=== PATIENT | male | born 1935 | race Caucasian/White ===

== ENCOUNTER 2017-05-25 10:31 | Emergency (ER) | payer MEDICARE ==
[~2017-05-25] VITALS: Ht 177.8 cm; Wt 104.3 kg
[~2017-05-25 10:31] MED LIST: ALLO100 PO; AMLO5 PO; CALC.25 PO; CYCL10 PO; FISH1000 PO; FURO20 PO; HYDCHL12.5 PO; LOSA25 PO; OXYACE5T PO; SIMV20 PO; XARELTO20 MG PO; ZOLP5 PO
[2017-05-25 11:09] LABS: BASOPHILS ABSOLUTE AUTO 0.09 K/mm3 (0.00-0.23); BASOPHILS PERCENT AUTO 1 % (0-2); EOSINOPHILS ABSOLUTE AUTO 0.32 K/mm3 (0.00-0.68); EOSINOPHILS PERCENT AUTO 3 % (0-6); Hematocrit 51.9 % (37.0-53.0); Hemoglobin 17.4 g/dL (13.5-17.5); IMMATURE GRAN PERCENT AUTO 1 % (0-1); LYMPHOCYTES ABSOLUTE AUTO 1.55 K/mm3 (0.84-5.20); LYMPHOCYTES PERCENT AUTO 14 % (21-46); MONOCYTES ABSOLUTE AUTO 1.19 K/mm3 (0.16-1.47); MONOCYTES PERCENT AUTO 11 % (4-13); Mean Corpuscular HGB 33.1 pg (26.0-34.0); Mean Corpuscular HGB Conc 33.5 g/dL (31.5-36.5); Mean Corpuscular Volume 99 fL (80-100); Mean Platelet Volume 10.7 fL (9.1-12.4); NEUTROPHILS ABSOLUTE AUTO 8.01 K/mm3 (1.96-9.15); NEUTROPHILS PERCENT AUTO 71 % (41-73); Platelet Count 338 K/mm3 (150-400); RDW Coefficient Variation 14.6 % (11.7-14.2); RDW Standard Deviation 53.5 fL (35.1-46.3); Red Blood Cell Count 5.25 M/mm3 (4.30-5.90); White Blood Cell Count 11.26 K/mm3 (4.00-11.30)
[2017-05-25 11:19] LABS: Albumin, Blood 3.5 g/dL (3.4-5.0); Albumin/Globulin Ratio 0.8 (0.8-1.8); Bilirubin, Total 0.7 mg/dL (0.1-1.0); Bun/Creatinine Ratio 17.3 (12.0-20.0); Calcium, Blood 9.5 mg/dL (8.5-10.1); Creatinine, Blood 2.25 mg/dL (0.60-1.20); Globulin, Blood 4.5 g/dL (2.2-4.0)
[2017-05-25 12:15] LABS: Source, Urine Voided
[2017-05-25 12:37] LABS: Bilirubin, Urine Neg (Neg); Blood, Urine Neg (Neg); Glucose Qualitative, Urine Neg (Neg); Ketones, Urine Neg (Neg); Leukocyte Esterase, Urine 1+ (Neg); Nitrite, Urine Pos (Neg); Protein, Urine 1+ (Neg); Specific Gravity, Urine 1.015 (1.003-1.022); Urobilinogen, Urine NORM (Normal)
[2017-05-25 13:02] LABS: Appearance, Urine Clear (Clear); Color, Urine Pale Yellow (P-Yellow)
[2017-05-25 13:06] LABS: Red Blood Cells, Urine 0-2 /hpf (0-2)
[2017-05-25 13:07] LABS: Bacteria Many /hpf; Squamous Epithelial Cells Rare /hpf (Few)
[2017-05-25 13:08] LABS: Hyaline Casts 0-2 /lpf (0-2)
[2017-05-25] MEDS ORDERED: CEPH500 PO (13:24)
== END 2017-05-25 13:45 | disposition home or self-care (01) ==
LOC: ER 10:31
PROVIDERS: Emergency Medicine
DX: N39.0 Urinary tract infection, site not specified (principal); I10 Essential (primary) hypertension; Z79.899 Other long term (current) drug therapy; Z87.891 Personal history of nicotine dependence
CPT/HCPCS: 36415; 80053; 81001; 85025; 87077; 87086; 87186; 93005; 93010; 99283

== ENCOUNTER → 2017-06-01 | Outpatient (CLI) | payer MEDICARE ==
[~2017-06-01] MED LIST changes: +CEPH500 PO
[2017-06-01 10:17] LABS: Source, Urine Voided
[2017-06-01 11:30] LABS: Bilirubin, Urine Neg (Neg); Blood, Urine Neg (Neg); Glucose Qualitative, Urine Neg (Neg); Ketones, Urine Neg (Neg); Leukocyte Esterase, Urine Neg (Neg); Nitrite, Urine Neg (Neg); Protein, Urine 2+ (Neg); Specific Gravity, Urine 1.015 (1.003-1.022); Urobilinogen, Urine NORM (Normal)
[2017-06-01 11:53] LABS: Appearance, Urine Clear (Clear); Color, Urine Yellow (P-Yellow)
[2017-06-01 11:56] LABS: Bacteria Rare /hpf; Red Blood Cells, Urine Not Seen /hpf (0-2); Squamous Epithelial Cells Few /hpf (Few); White Blood Cells, Urine Not Seen /hpf (0-5)
== END | disposition home or self-care (01) ==
LOC: OLS 10:15 → LAB SHORT 10:15
PROVIDERS: Internal Medicine
DX: N39.0 Urinary tract infection, site not specified (principal)
CPT/HCPCS: 81001

== ENCOUNTER 2017-09-20 09:25 | Emergency (ER) | payer MEDICARE ==
[~2017-09-20] VITALS: Ht 182.9 cm; Wt 88.5 kg
[2017-09-20 09:45] LABS: BASOPHILS ABSOLUTE AUTO 0.07 K/mm3 (0.00-0.23); BASOPHILS PERCENT AUTO 1 % (0-2); EOSINOPHILS ABSOLUTE AUTO 0.49 K/mm3 (0.00-0.68); EOSINOPHILS PERCENT AUTO 4 % (0-6); Hematocrit 51.2 % (37.0-53.0); Hemoglobin 17.2 g/dL (13.5-17.5); IMMATURE GRAN ABSOLUTE AUTO 0.08 K/mm3 (0.00-0.10); IMMATURE GRAN PERCENT AUTO 1 % (0-1); LYMPHOCYTES ABSOLUTE AUTO 1.85 K/mm3 (0.84-5.20); LYMPHOCYTES PERCENT AUTO 16 % (21-46); MONOCYTES ABSOLUTE AUTO 1.06 K/mm3 (0.16-1.47); MONOCYTES PERCENT AUTO 9 % (4-13); Mean Corpuscular HGB 32.7 pg (26.0-34.0); Mean Corpuscular HGB Conc 33.6 g/dL (31.5-36.5); Mean Corpuscular Volume 97 fL (80-100); Mean Platelet Volume 10.8 fL (9.1-12.4); NEUTROPHILS ABSOLUTE AUTO 8.27 K/mm3 (1.96-9.15); NEUTROPHILS PERCENT AUTO 70 % (41-73); Platelet Count 264 K/mm3 (150-400); RDW Coefficient Variation 15.7 % (11.7-14.2); RDW Standard Deviation 55.4 fL (35.1-46.3); Red Blood Cell Count 5.26 M/mm3 (4.30-5.90); White Blood Cell Count 11.82 K/mm3 (4.00-11.30)
[2017-09-20 10:07] LABS: Troponin I <0.015 ng/mL (0.000-0.040)
[2017-09-20 10:18] LABS: Alanine Aminotransfer (ALT/SGP 43 U/L (12-78); Albumin, Blood 2.9 g/dL (3.4-5.0); Albumin/Globulin Ratio 0.7 (0.8-1.8); Alk Phos 99 U/L (50-136); Anion Gap 10 mmol/L (6-16); Aspartate Aminotrans (AST/SGOT 27 U/L (12-37); Bilirubin, Total 0.6 mg/dL (0.1-1.0); Blood Urea Nitrogen 30 mg/dL (8-24); Bun/Creatinine Ratio 17.2 (12.0-20.0); CO2, Blood 19 mmol/L (21-32); Chloride, Blood 111 mmol/L (98-108); Creatinine, Blood 1.74 mg/dL (0.60-1.20); Globulin, Blood 4.2 g/dL (2.2-4.0); Glomerular Filtration Rate 40 (60-); Glucose, Blood 126 mg/dL (70-99); Potassium, Blood 3.8 mmol/L (3.5-5.5); Sodium, Blood 140 mmol/L (136-145); Total Protein, Blood 7.1 g/dL (6.4-8.2)
== END 2017-09-20 13:42 | disposition home or self-care (01) ==
LOC: ER 09:25
PROVIDERS: Emergency Medicine
DX: R55 Syncope and collapse (principal); I10 Essential (primary) hypertension; Z79.899 Other long term (current) drug therapy; Z79.891 Long term (current) use of opiate analgesic; Z79.2 Long term (current) use of antibiotics
CPT/HCPCS: 36415; 71046; 80053; 83880; 84484; 85025; 93005; 93010; 99284-25

== ENCOUNTER 2017-11-03 12:16 | Inpatient (IN) | payer MEDICARE ==
[~2017-11-03] VITALS: Ht 175.3 cm; Wt 93.7 kg
[~2017-11-03 12:16] MED LIST changes: +SIMV10 PO; -SIMV20 PO
[2017-11-03 12:49] LABS: BASOPHILS ABSOLUTE AUTO 0.06 K/mm3 (0.00-0.23); BASOPHILS PERCENT AUTO 0 % (0-2); EOSINOPHILS ABSOLUTE AUTO 0.09 K/mm3 (0.00-0.68); EOSINOPHILS PERCENT AUTO 0 % (0-6); Hematocrit 52.7 % (37.0-53.0); Hemoglobin 17.7 g/dL (13.5-17.5); IMMATURE GRAN ABSOLUTE AUTO 0.16 K/mm3 (0.00-0.10); IMMATURE GRAN PERCENT AUTO 1 % (0-1); LYMPHOCYTES ABSOLUTE AUTO 1.87 K/mm3 (0.84-5.20); LYMPHOCYTES PERCENT AUTO 9 % (21-46); MONOCYTES ABSOLUTE AUTO 1.73 K/mm3 (0.16-1.47); MONOCYTES PERCENT AUTO 8 % (4-13); Mean Corpuscular HGB 32.2 pg (26.0-34.0); Mean Corpuscular HGB Conc 33.6 g/dL (31.5-36.5); Mean Corpuscular Volume 96 fL (80-100); NEUTROPHILS ABSOLUTE AUTO 17.79 K/mm3 (1.96-9.15); NEUTROPHILS PERCENT AUTO 82 % (41-73); Platelet Count 321 K/mm3 (150-400); RDW Coefficient Variation 16.3 % (11.7-14.2); RDW Standard Deviation 56.3 fL (35.1-46.3)
[2017-11-03] MEDS ORDERED: DONE10 PO (13:01)
[2017-11-03] MEDS ORDERED: SODBIC650 PO (13:01)
[2017-11-03] MEDS ORDERED: METO50ER PO (13:02)
[2017-11-03] MEDS ORDERED: MULTI VITAMIN1 EACH PO (13:02)
[2017-11-03] MEDS ORDERED: CALC.25 PO (13:02)
[2017-11-03 13:04] LABS: Albumin, Blood 3.2 g/dL (3.4-5.0); Albumin/Globulin Ratio 0.7 (0.8-1.8); Bilirubin, Total 1.3 mg/dL (0.1-1.0); Bun/Creatinine Ratio 13.3 (12.0-20.0); Calcium, Blood 9.4 mg/dL (8.5-10.1); Creatinine, Blood 1.96 mg/dL (0.60-1.20); Globulin, Blood 4.5 g/dL (2.2-4.0); Potassium, Blood 3.9 mmol/L (3.5-5.5); Total Protein, Blood 7.7 g/dL (6.4-8.2)
[2017-11-03 16:23] LABS: Source, Urine Clean Catch
[2017-11-03 16:27] LABS: Appearance, Urine Clear (Clear); Bilirubin, Urine Neg (Neg); Blood, Urine 1+ (Neg); Color, Urine Yellow (P-Yellow); Glucose Qualitative, Urine Neg (Neg); Ketones, Urine 2+ (Neg); Leukocyte Esterase, Urine 1+ (Neg); Nitrite, Urine Neg (Neg); Protein, Urine 2+ (Neg); Urobilinogen, Urine NORM (Normal)
[2017-11-03 16:47] LABS: Bacteria Not Seen /hpf; Mucus Light (0-Heavy); Squamous Epithelial Cells Not Seen /hpf (Few)
[2017-11-04 05:44] LABS: BASOPHILS ABSOLUTE AUTO 0.08 K/mm3 (0.00-0.23); BASOPHILS PERCENT AUTO 1 % (0-2); EOSINOPHILS ABSOLUTE AUTO 0.16 K/mm3 (0.00-0.68); EOSINOPHILS PERCENT AUTO 1 % (0-6); Hematocrit 44.8 % (37.0-53.0); Hemoglobin 14.4 g/dL (13.5-17.5); IMMATURE GRAN ABSOLUTE AUTO 0.08 K/mm3 (0.00-0.10); IMMATURE GRAN PERCENT AUTO 1 % (0-1); LYMPHOCYTES ABSOLUTE AUTO 1.35 K/mm3 (0.84-5.20); LYMPHOCYTES PERCENT AUTO 9 % (21-46); MONOCYTES ABSOLUTE AUTO 1.45 K/mm3 (0.16-1.47); MONOCYTES PERCENT AUTO 9 % (4-13); Mean Corpuscular HGB 32.1 pg (26.0-34.0); Mean Corpuscular HGB Conc 32.1 g/dL (31.5-36.5); Mean Platelet Volume 10.7 fL (9.1-12.4); NEUTROPHILS ABSOLUTE AUTO 12.73 K/mm3 (1.96-9.15); NEUTROPHILS PERCENT AUTO 80 % (41-73); Platelet Count 228 K/mm3 (150-400); RDW Coefficient Variation 16.2 % (11.7-14.2); RDW Standard Deviation 59.7 fL (35.1-46.3); Red Blood Cell Count 4.49 M/mm3 (4.30-5.90); White Blood Cell Count 15.85 K/mm3 (4.00-11.30)
[2017-11-04 05:50] LABS: Mean Corpuscular Volume 100 fL (80-100)
[2017-11-04 05:59] LABS: Albumin, Blood 2.2 g/dL (3.4-5.0); Albumin/Globulin Ratio 0.6 (0.8-1.8); Bilirubin, Direct 0.2 mg/dL (0.0-0.3); Bilirubin, Indirect 0.8 mg/dL (0.1-0.7); Bun/Creatinine Ratio 13.9 (12.0-20.0); Calcium, Blood 7.9 mg/dL (8.5-10.1); Creatinine, Blood 1.73 mg/dL (0.60-1.20); Globulin, Blood 3.7 g/dL (2.2-4.0); Magnesium, Blood 1.8 mg/dL (1.6-2.4); Phosphorus, Blood 1.9 mg/dL (2.5-4.9); Total Protein, Blood 5.9 g/dL (6.4-8.2)
[2017-11-05 08:34] LABS: BASOPHILS ABSOLUTE AUTO 0.05 K/mm3 (0.00-0.23); BASOPHILS PERCENT AUTO 0 % (0-2); EOSINOPHILS ABSOLUTE AUTO 0.39 K/mm3 (0.00-0.68); EOSINOPHILS PERCENT AUTO 3 % (0-6); Hemoglobin 14.3 g/dL (13.5-17.5); IMMATURE GRAN ABSOLUTE AUTO 0.09 K/mm3 (0.00-0.10); IMMATURE GRAN PERCENT AUTO 1 % (0-1); LYMPHOCYTES ABSOLUTE AUTO 1.25 K/mm3 (0.84-5.20); LYMPHOCYTES PERCENT AUTO 11 % (21-46); MONOCYTES ABSOLUTE AUTO 1.27 K/mm3 (0.16-1.47); MONOCYTES PERCENT AUTO 11 % (4-13); Mean Corpuscular HGB 32.1 pg (26.0-34.0); Mean Corpuscular HGB Conc 32.5 g/dL (31.5-36.5); Mean Corpuscular Volume 99 fL (80-100); Mean Platelet Volume 11.3 fL (9.1-12.4); NEUTROPHILS ABSOLUTE AUTO 8.72 K/mm3 (1.96-9.15); NEUTROPHILS PERCENT AUTO 74 % (41-73); Platelet Count 254 K/mm3 (150-400); RDW Coefficient Variation 16.2 % (11.7-14.2); RDW Standard Deviation 59.4 fL (35.1-46.3); Red Blood Cell Count 4.45 M/mm3 (4.30-5.90); White Blood Cell Count 11.77 K/mm3 (4.00-11.30)
[2017-11-05 08:45] LABS: Bun/Creatinine Ratio 13.9 (12.0-20.0); Creatinine, Blood 1.58 mg/dL (0.60-1.20); Potassium, Blood 3.9 mmol/L (3.5-5.5)
[2017-11-05] MEDS ORDERED: ACET325 PO (12:24)
[2017-11-05] MEDS ORDERED: CIPR500 PO (12:25)
[2017-11-05] MEDS ORDERED: HYDR1TAB94 PO (12:25)
[2017-11-05] MEDS ORDERED: PROBIOTIC1 EAC1 PO (12:26)
[2017-11-05] MEDS ORDERED: (None)15 GM TOP (12:26)
[2017-11-05] MEDS ORDERED: ONDA4ODT MM (12:27)
[2017-11-05] MEDS ORDERED: METR500 PO (12:27)
[2017-11-05] MEDS ORDERED: NYSTATIN TOP (12:28)
[2017-11-05] MEDS ORDERED: POTASSIUM PHOSPH1 GM MC (12:28)
[2017-11-06 04:11] LABS: BASOPHILS ABSOLUTE AUTO 0.06 K/mm3 (0.00-0.23); BASOPHILS PERCENT AUTO 1 % (0-2); EOSINOPHILS ABSOLUTE AUTO 0.55 K/mm3 (0.00-0.68); EOSINOPHILS PERCENT AUTO 5 % (0-6); Hematocrit 44.6 % (37.0-53.0); Hemoglobin 15.1 g/dL (13.5-17.5); IMMATURE GRAN ABSOLUTE AUTO 0.15 K/mm3 (0.00-0.10); IMMATURE GRAN PERCENT AUTO 1 % (0-1); LYMPHOCYTES ABSOLUTE AUTO 1.72 K/mm3 (0.84-5.20); LYMPHOCYTES PERCENT AUTO 15 % (21-46); MONOCYTES ABSOLUTE AUTO 1.21 K/mm3 (0.16-1.47); MONOCYTES PERCENT AUTO 10 % (4-13); Mean Corpuscular HGB 32.1 pg (26.0-34.0); Mean Corpuscular HGB Conc 33.9 g/dL (31.5-36.5); Mean Platelet Volume 11.1 fL (9.1-12.4); NEUTROPHILS PERCENT AUTO 69 % (41-73); Platelet Count 296 K/mm3 (150-400); RDW Coefficient Variation 15.9 % (11.7-14.2); RDW Standard Deviation 55.2 fL (35.1-46.3); Red Blood Cell Count 4.71 M/mm3 (4.30-5.90); White Blood Cell Count 11.79 K/mm3 (4.00-11.30)
[2017-11-06 04:12] LABS: Mean Corpuscular Volume 95 fL (80-100)
[2017-11-06 04:27] LABS: Bun/Creatinine Ratio 9.7 (12.0-20.0); Calcium, Blood 8.1 mg/dL (8.5-10.1); Creatinine, Blood 1.45 mg/dL (0.60-1.20)
[2017-11-06 19:23] LABS: Adenovirus F 40/41 Not Detected (NOT DETECT); Astrovirus Not Detected (NOT DETECT); Campylobacter Sp Not Detected (NOT DETECT); Cryptosporidium Not Detected (NOT DETECT); Cyclospora Cayetanensis Not Detected (NOT DETECT); E. Coli O157 Not Detected (NOT DETECT); Entamoeba Histolytica Not Detected (NOT DETECT); Enteroaggregative E. coli-EAEC Not Detected (NOT DETECT); Enteropathogenic E. coli-EPEC Not Detected (NOT DETECT); Enterotoxigenic E. coli-ETEC Not Detected (NOT DETECT); Giardia Lamblia Not Detected (NOT DETECT); Norovirus GI/GII Not Detected (NOT DETECT); Plesiomonas Shigelloides Not Detected (NOT DETECT); Rotavirus A Not Detected (NOT DETECT); Salmonella Sp Not Detected (NOT DETECT); Sapovirus Not Detected (NOT DETECT); Shiga Toxin-prod E. coli-STEC Not Detected (NOT DETECT); Shigella/Enteroin E. coli-EIEC Not Detected (NOT DETECT); Vibrio Cholerae Not Detected (NOT DETECT); Vibrio Sp Not Detected (NOT DETECT); Yersinia Enterocolitica Not Detected (NOT DETECT)
[2017-11-07 05:49] LABS: BASOPHILS ABSOLUTE AUTO 0.08 K/mm3 (0.00-0.23); BASOPHILS PERCENT AUTO 1 % (0-2); EOSINOPHILS ABSOLUTE AUTO 0.53 K/mm3 (0.00-0.68); EOSINOPHILS PERCENT AUTO 6 % (0-6); Hematocrit 46.1 % (37.0-53.0); Hemoglobin 15.5 g/dL (13.5-17.5); IMMATURE GRAN ABSOLUTE AUTO 0.15 K/mm3 (0.00-0.10); IMMATURE GRAN PERCENT AUTO 2 % (0-1); LYMPHOCYTES ABSOLUTE AUTO 1.39 K/mm3 (0.84-5.20); LYMPHOCYTES PERCENT AUTO 15 % (21-46); MONOCYTES ABSOLUTE AUTO 0.96 K/mm3 (0.16-1.47); MONOCYTES PERCENT AUTO 10 % (4-13); Mean Corpuscular HGB 32.4 pg (26.0-34.0); Mean Corpuscular HGB Conc 33.6 g/dL (31.5-36.5); Mean Corpuscular Volume 96 fL (80-100); Mean Platelet Volume 10.6 fL (9.1-12.4); NEUTROPHILS PERCENT AUTO 67 % (41-73); Platelet Count 314 K/mm3 (150-400); RDW Coefficient Variation 15.9 % (11.7-14.2); RDW Standard Deviation 56.9 fL (35.1-46.3); Red Blood Cell Count 4.79 M/mm3 (4.30-5.90); White Blood Cell Count 9.41 K/mm3 (4.00-11.30)
[2017-11-07 06:09] LABS: Albumin, Blood 2.5 g/dL (3.4-5.0); Anion Gap 8 mmol/L (6-16); Blood Urea Nitrogen 11 mg/dL (8-24); Bun/Creatinine Ratio 7.6 (12.0-20.0); CO2, Blood 23 mmol/L (21-32); Calcium, Blood 8.4 mg/dL (8.5-10.1); Chloride, Blood 110 mmol/L (98-108); Creatinine, Blood 1.44 mg/dL (0.60-1.20); Glomerular Filtration Rate 50 (60-); Glucose, Blood 89 mg/dL (70-99); Phosphorus, Blood 2.4 mg/dL (2.5-4.9); Potassium, Blood 4.1 mmol/L (3.5-5.5); Sodium, Blood 141 mmol/L (136-145)
[2017-11-08 04:19] LABS: BASOPHILS ABSOLUTE AUTO 0.08 K/mm3 (0.00-0.23); BASOPHILS PERCENT AUTO 1 % (0-2); EOSINOPHILS ABSOLUTE AUTO 0.57 K/mm3 (0.00-0.68); EOSINOPHILS PERCENT AUTO 6 % (0-6); Hematocrit 47.8 % (37.0-53.0); Hemoglobin 15.9 g/dL (13.5-17.5); IMMATURE GRAN PERCENT AUTO 2 % (0-1); LYMPHOCYTES ABSOLUTE AUTO 1.48 K/mm3 (0.84-5.20); LYMPHOCYTES PERCENT AUTO 15 % (21-46); MONOCYTES PERCENT AUTO 10 % (4-13); Mean Corpuscular HGB 31.9 pg (26.0-34.0); Mean Corpuscular HGB Conc 33.3 g/dL (31.5-36.5); Mean Corpuscular Volume 96 fL (80-100); Mean Platelet Volume 10.3 fL (9.1-12.4); NEUTROPHILS ABSOLUTE AUTO 6.64 K/mm3 (1.96-9.15); NEUTROPHILS PERCENT AUTO 67 % (41-73); Platelet Count 324 K/mm3 (150-400); RDW Coefficient Variation 15.9 % (11.7-14.2); RDW Standard Deviation 56.2 fL (35.1-46.3); Red Blood Cell Count 4.99 M/mm3 (4.30-5.90); White Blood Cell Count 9.97 K/mm3 (4.00-11.30)
[2017-11-08 04:43] LABS: Albumin, Blood 2.6 g/dL (3.4-5.0); Anion Gap 8 mmol/L (6-16); Blood Urea Nitrogen 14 mg/dL (8-24); Bun/Creatinine Ratio 9.2 (12.0-20.0); CO2, Blood 23 mmol/L (21-32); Calcium, Blood 8.6 mg/dL (8.5-10.1); Chloride, Blood 109 mmol/L (98-108); Creatinine, Blood 1.52 mg/dL (0.60-1.20); Glomerular Filtration Rate 47 (60-); Glucose, Blood 89 mg/dL (70-99); Phosphorus, Blood 2.4 mg/dL (2.5-4.9); Potassium, Blood 4.1 mmol/L (3.5-5.5); Sodium, Blood 140 mmol/L (136-145)
== END 2017-11-08 11:00 | DRG 392 ==
LOC: ER 12:16 → SURS 17:50
PROVIDERS: Emergency Medicine; Family Medicine; Physician Assistant
DX: A09 Infectious gastroenteritis and colitis, unspecified (principal); N17.9 Acute kidney failure, unspecified; R55 Syncope and collapse; E86.0 Dehydration; N18.3 Chronic kidney disease, stage 3 (moderate); G30.9 Alzheimer's disease, unspecified; F02.80 Dementia in other diseases classified elsewhere, unspecified severity, without behavioral disturbance, psychotic disturbance, mood disturbance, and anxiety; M10.9 Gout, unspecified; I12.9 Hypertensive chronic kidney disease with stage 1 through stage 4 chronic kidney disease, or unspecified chronic kidney disease; E78.5 Hyperlipidemia, unspecified; M35.3 Polymyalgia rheumatica; Z66 Do not resuscitate; Z87.891 Personal history of nicotine dependence; Z79.899 Other long term (current) drug therapy
CPT/HCPCS: 36415; 51702; 71046; 74018; 74176; 80048; 80053; 80069; 80076; 81001; 82150; 82947; 83605; 83735; 84100; 84484; 85025; 87015; 87040; 87045; 87046; 87086; 87205; 87507; 87899; 93005; 93010; 96360; 96361; 97116; 97161; 97165; 97535; 99285-25; G8978; G8979; G8987; G8988; J0744; J1650; J7030

== ENCOUNTER 2018-05-11 21:23 | Emergency (ER) | payer MEDICARE ==
[~2018-05-11] VITALS: Ht 175.3 cm; Wt 97.5 kg
[~2018-05-11 21:23] MED LIST changes: +(None)15 GM TOP; +ACET325 PO; +BISA10S PR; +CIPR500 PO; +DOCU100 PO; +DONE10 PO; +ELIQUIS2.5 MG PO; +ELIQUIS5 M1; +FURO100EL; +FURO100EL PO; +HYDR1TAB94 PO; +METO50ER PO; +METR500 PO; +MULTI VITAMIN1 EACH PO; +NYSTATIN TOP; +NYSTRITC TOP; +ONDA4ODT MM; +ONDA4ODT PO; +POTASSIUM PHOSPH1 GM MC; +PROBIOTIC1 EAC1 PO; +SACC250C PO; +SODBIC650 PO
[2018-05-11 22:03] LABS: BASOPHILS ABSOLUTE AUTO 0.09 K/mm3 (0.00-0.23); BASOPHILS PERCENT AUTO 1 % (0-2); EOSINOPHILS ABSOLUTE AUTO 0.33 K/mm3 (0.00-0.68); EOSINOPHILS PERCENT AUTO 3 % (0-6); Hematocrit 48.7 % (37.0-53.0); Hemoglobin 16.3 g/dL (13.5-17.5); IMMATURE GRAN ABSOLUTE AUTO 0.17 K/mm3 (0.00-0.10); IMMATURE GRAN PERCENT AUTO 2 % (0-1); LYMPHOCYTES ABSOLUTE AUTO 1.46 K/mm3 (0.84-5.20); LYMPHOCYTES PERCENT AUTO 13 % (21-46); MONOCYTES ABSOLUTE AUTO 1.33 K/mm3 (0.16-1.47); MONOCYTES PERCENT AUTO 12 % (4-13); Mean Corpuscular HGB 34.5 pg (26.0-34.0); Mean Corpuscular HGB Conc 33.5 g/dL (31.5-36.5); Mean Corpuscular Volume 103 fL (80-100); Mean Platelet Volume 11.2 fL (9.1-12.4); NEUTROPHILS ABSOLUTE AUTO 8.16 K/mm3 (1.96-9.15); NEUTROPHILS PERCENT AUTO 71 % (41-73); Platelet Count 243 K/mm3 (150-400); RDW Coefficient Variation 15.9 % (11.7-14.2); RDW Standard Deviation 61.5 fL (35.1-46.3); Red Blood Cell Count 4.72 M/mm3 (4.30-5.90); White Blood Cell Count 11.54 K/mm3 (4.00-11.30)
[2018-05-11 22:26] LABS: Albumin, Blood 3.5 g/dL (3.4-5.0); Albumin/Globulin Ratio 0.8 (0.8-1.8); Bilirubin, Total 0.5 mg/dL (0.1-1.0); Bun/Creatinine Ratio 17.9 (12.0-20.0); Calcium, Blood 9.5 mg/dL (8.5-10.1); Creatinine, Blood 1.9 mg/dL (0.60-1.20); Globulin, Blood 4.3 g/dL (2.2-4.0); Potassium, Blood 4.4 mmol/L (3.5-5.5); Total Protein, Blood 7.8 g/dL (6.4-8.2)
[2018-05-11 23:14] LABS: Source, Urine Clean Catch
[2018-05-11 23:18] LABS: Bilirubin, Urine Neg (Neg); Blood, Urine Neg (Neg); Glucose Qualitative, Urine Neg (Neg); Ketones, Urine Neg (Neg); Leukocyte Esterase, Urine Neg (Neg); Nitrite, Urine Neg (Neg); Protein, Urine 2+ (Neg); Urobilinogen, Urine NORM (Normal)
[2018-05-11 23:21] LABS: Appearance, Urine Clear (Clear); Color, Urine Yellow (P-Yellow)
[2018-05-11 23:33] LABS: Bacteria Not Seen /hpf; Red Blood Cells, Urine Not Seen /hpf (0-2); Squamous Epithelial Cells Rare /hpf (Few); White Blood Cells, Urine Rare /hpf (0-5)
[2018-05-12 00:16] LABS: Influenza A Negative (NEGATIVE); Influenza B Negative (NEGATIVE)
== END 2018-05-12 01:33 | disposition home or self-care (01) ==
LOC: ER 21:23
PROVIDERS: Emergency Medicine
DX: S09.90XA Unspecified injury of head, initial encounter (principal); E86.0 Dehydration; I10 Essential (primary) hypertension; M10.9 Gout, unspecified; G62.9 Polyneuropathy, unspecified; M35.3 Polymyalgia rheumatica; Z87.891 Personal history of nicotine dependence; Z79.899 Other long term (current) drug therapy; W19.XXXA Unspecified fall, initial encounter
CPT/HCPCS: 36415; 70450; 71046; 72125; 73620; 80053; 81001; 85025; 85651; 86141; 87804; 93005; 93010; 96360; 96361; 99284-25; J7030

== ENCOUNTER 2018-05-20 14:14 | Emergency (ER) | payer MEDICARE ==
[~2018-05-20] VITALS: Ht 177.8 cm; Wt 84.4 kg
[2018-05-20 15:06] LABS: BASOPHILS ABSOLUTE AUTO 0.07 K/mm3 (0.00-0.23); BASOPHILS PERCENT AUTO 1 % (0-2); EOSINOPHILS ABSOLUTE AUTO 0.41 K/mm3 (0.00-0.68); EOSINOPHILS PERCENT AUTO 4 % (0-6); Hematocrit 50.1 % (37.0-53.0); Hemoglobin 16.8 g/dL (13.5-17.5); IMMATURE GRAN ABSOLUTE AUTO 0.17 K/mm3 (0.00-0.10); IMMATURE GRAN PERCENT AUTO 2 % (0-1); LYMPHOCYTES ABSOLUTE AUTO 2.09 K/mm3 (0.84-5.20); LYMPHOCYTES PERCENT AUTO 18 % (21-46); MONOCYTES ABSOLUTE AUTO 0.83 K/mm3 (0.16-1.47); MONOCYTES PERCENT AUTO 7 % (4-13); Mean Corpuscular HGB 34.1 pg (26.0-34.0); Mean Corpuscular HGB Conc 33.5 g/dL (31.5-36.5); Mean Corpuscular Volume 102 fL (80-100); NEUTROPHILS ABSOLUTE AUTO 7.92 K/mm3 (1.96-9.15); NEUTROPHILS PERCENT AUTO 69 % (41-73); Platelet Count 288 K/mm3 (150-400); RDW Coefficient Variation 15.8 % (11.7-14.2); RDW Standard Deviation 59.1 fL (35.1-46.3); Red Blood Cell Count 4.93 M/mm3 (4.30-5.90); White Blood Cell Count 11.49 K/mm3 (4.00-11.30)
[2018-05-20 15:19] LABS: Albumin, Blood 3.6 g/dL (3.4-5.0); Albumin/Globulin Ratio 0.8 (0.8-1.8); Bilirubin, Total 0.6 mg/dL (0.1-1.0); Bun/Creatinine Ratio 21.4 (12.0-20.0); Calcium, Blood 9.5 mg/dL (8.5-10.1); Creatinine, Blood 1.87 mg/dL (0.60-1.20); Globulin, Blood 4.4 g/dL (2.2-4.0); Potassium, Blood 4.8 mmol/L (3.5-5.5)
[2018-05-20] MEDS ORDERED: Vibramycin100 MG PO (16:51)
[2018-05-20] MEDS ORDERED: ONDA4ODT MM (16:51)
== END 2018-05-20 17:30 | disposition home or self-care (01) ==
LOC: ER 14:14
PROVIDERS: Physician Assistant
DX: M86.8X8 Other osteomyelitis, other site (principal); Z79.899 Other long term (current) drug therapy; I10 Essential (primary) hypertension; Z87.891 Personal history of nicotine dependence
CPT/HCPCS: 36415; 80053; 83605; 85025; 99283

== ENCOUNTER 2018-11-03 11:49 | Day surgery (SDC) | payer MEDICARE ==
[~2018-11-03] VITALS: Ht 177.8 cm; Wt 96.2 kg
[~2018-11-03 11:49] MED LIST changes: +Vibramycin100 MG PO
--- NOTE | 2018-11-03 12:49 | NUR ---
11/03/18 1249 JOHANNA PAUL 1 IV ATTEMPT BY RN VEIN ROLLED 2 IV ATTEMPT BY RN SUCCESSFUL
== END 2018-11-03 15:04 | disposition home or self-care (01) ==
LOC: ORSCSDS 11:49
PROVIDERS: Internal Medicine Gastroenterology
PROC: 0D758ZZ Dilation of Esophagus, Via Natural or Artificial Opening Endoscopic (ICD-10-PCS; principal; 2018-11-03 13:00)
PROC: 0DB58ZX Excision of Esophagus, Via Natural or Artificial Opening Endoscopic, Diagnostic (ICD-10-PCS; principal; 2018-11-03 13:00)
DX: R13.10 Dysphagia, unspecified (principal); I10 Essential (primary) hypertension; G47.33 Obstructive sleep apnea (adult) (pediatric); Z87.891 Personal history of nicotine dependence; Z86.718 Personal history of other venous thrombosis and embolism; Z79.01 Long term (current) use of anticoagulants; Z79.899 Other long term (current) drug therapy
CPT/HCPCS: 88305; C1726; J2704; J7120

== ENCOUNTER 2019-11-29 10:42 | Inpatient (IN) | payer MEDICARE ==
[~2019-11-29] VITALS: Ht 177.8 cm; Wt 92.8 kg
[~2019-11-29 10:42] MED LIST changes: -DONE10 PO; -ELIQUIS5 M1; -LOSA25 PO; -METO50ER PO
[2019-11-29 11:10] LABS: Calcium, Ionized (POC) 1.18 mmol/L (1.10-1.46); Chloride (POC) 107 mmol/L (98-108); Glucose (ISTAT POC) 132 mg/dL (70-99); Sodium (POC) 140 mmol/L (135-148); Total CO2 (POC) 22 mmol/L (21-32)
[2019-11-29 11:22] LABS: BASOPHILS ABSOLUTE AUTO 0.11 K/mm3 (0.00-0.23); BASOPHILS PERCENT AUTO 1 % (0-2); EOSINOPHILS ABSOLUTE AUTO 0.49 K/mm3 (0.00-0.68); EOSINOPHILS PERCENT AUTO 4 % (0-6); Hematocrit 43.3 % (37.0-53.0); Hemoglobin 13.3 g/dL (13.5-17.5); IMMATURE GRAN ABSOLUTE AUTO 0.12 K/mm3 (0.00-0.10); IMMATURE GRAN PERCENT AUTO 1 % (0-1); LYMPHOCYTES ABSOLUTE AUTO 3.08 K/mm3 (0.84-5.20); LYMPHOCYTES PERCENT AUTO 26 % (21-46); MONOCYTES ABSOLUTE AUTO 1.68 K/mm3 (0.16-1.47); MONOCYTES PERCENT AUTO 14 % (4-13); Mean Corpuscular HGB 26.2 pg (26.0-34.0); Mean Corpuscular HGB Conc 30.7 g/dL (31.5-36.5); Mean Corpuscular Volume 85 fL (80-100); Mean Platelet Volume 11.3 fL (9.1-12.4); NEUTROPHILS PERCENT AUTO 54 % (41-73); Platelet Count 371 K/mm3 (150-400); RDW Coefficient Variation 21.4 % (11.7-14.2); RDW Standard Deviation 65.4 fL (35.1-46.3); Red Blood Cell Count 5.08 M/mm3 (4.30-5.90); White Blood Cell Count 11.78 K/mm3 (4.00-11.30)
[2019-11-29] MEDS ORDERED: METTREX2.5 PO (11:34)
[2019-11-29] MEDS ORDERED: MIRT15 PO (11:35)
[2019-11-29 11:52] LABS: Alanine Aminotransfer (ALT/SGP 24 U/L (12-78); Albumin, Blood 3.1 g/dL (3.4-5.0); Albumin/Globulin Ratio 0.8 (0.8-1.8); Alk Phos 100 U/L (50-136); Anion Gap 7 mmol/L (6-16); Aspartate Aminotrans (AST/SGOT 17 U/L (12-37); Bilirubin, Total 0.4 mg/dL (0.1-1.0); Blood Urea Nitrogen 37 mg/dL (8-24); Bun/Creatinine Ratio 19.4 (12.0-20.0); CO2, Blood 24 mmol/L (21-32); Calcium, Blood 9.6 mg/dL (8.5-10.1); Chloride, Blood 109 mmol/L (98-108); Creatinine, Blood 1.91 mg/dL (0.60-1.20); Glomerular Filtration Rate 36 (60-); Glucose, Blood 129 mg/dL (70-99); Potassium, Blood 4.1 mmol/L (3.5-5.5); Sodium, Blood 140 mmol/L (136-145); Total Protein, Blood 7.1 g/dL (6.4-8.2); Troponin I <0.015 ng/mL (0.000-0.040)
[2019-11-29] MEDS ORDERED: LOSA25 PO (13:30)
[2019-11-29] MEDS ORDERED: DONE10 PO (13:30)
[2019-11-29] MEDS ORDERED: METO50ER PO (13:31)
[2019-11-29] MEDS ORDERED: ELIQUIS2.5 MG PO (13:31)
[2019-11-29] MEDS ORDERED: MULTI-VITAMIN1 EAC2 PO (13:32)
[2019-11-29] MEDS ORDERED: FOLI1 PO (13:32)
--- NOTE | 2019-11-29 15:25 | NUR ---
PT ARRIVED TO MEDICAL FLOOR ADMITTED FROM ED TO COMFORT CARE. , MADELAINE IN ROOM. PT AND ORIENTED TO ROOM. CALL LIGHT IN REACH. PT CHANGED INTO CLEAN BRIEF, WARM BLANKETS AND ICE WATER BROUGHT TO ROOM PER PT REQUEST. DENIES NEEDS AT THIS TIME.
--- NOTE | 2019-11-29 15:35 | NUR ---
Pt visit while in the ED. Orders placed for comfort care. Pt resting on gurney and denies pain at this time. Pt not corry verbal during visit but is able to shake his head yes and no. Pt's spouse Cristal is at bedside. Engaged in therapeutic discussion regarding plan of care. Listened as Cristal reports Pt has reached the point of no longer wanting cancer treatment. Pt has Multiple Myeloma. Educated on comfort care and hospice philosophy with V/U made by spouse. Pt shakes his head indicating yes that he is in agreement. Discussed hospice agencies to choose from. Spouse and Pt chooses [facility]. Spouse reports their daughter is a retired nurse that is down visiting from [place]. Spouse will be primary caregiver with the assistance of daughter. Cristal reports they have a son who is able to help on occasion but is suffering from health issues as well. Continued therapeutic listening and answered questions. Pt and family express appreciation of visit. Called and spoke with Marily at Dr Tejeda's office. Discussed case and Pt's wishes. Marily reports Dr Tejeda is agreeable with Pt's decision for hospice. Spoke with Hospitalist Junior and discussed case. Called and spoke with HH&H Liason Susan. Susan will have Pt screened. Palliative Care will remain available for symptom management and supportive visits.
--- NOTE | 2019-11-29 17:32 | NUR ---
Initial spiritual care note: Asked by staff to come to ED to be with spouse as pt appeared to be nearing end-of-life. Pt and spouse familiar to me from previous family admissions. Eugenie and I have an easy rapport. I stayed with Eugenie for several hours as Al appeared to stop breathing and go pulse-less several times. He would rally but stay unresponsive while in ED. Once admitted to medical floor, he appeared to awaken and started speaking, asking questions. He is confused at baseline. Eugenie again states that she'd like pt to remain comfort care status. If he is still "here" in a couple days, "then he can come home with hospice." Provided theraputic listeing, gentle after school counselor, facilitated story-telling and offered prayer. Eugenie was appreciaitve. I will remain available.
--- NOTE | 2019-11-29 18:36 | NUR ---
SHIFT SUMMARY PT ARRIVED TO [facility] AT 1525 ON COMFORT CARE. PT HAS BEEN SLEEPING MOST OF EVENING. LEFT SHORTLY AFTER ADMISSION. PLAN FOR GETTING HOSPICE REFERRAL. DINNER TRAY OFFERED AND ACCEPTED. PT APPEARS COMFORTABLE. DENIES ANY NEEDS AT THIS TIME. CALL LIGHT IN REACH.
--- NOTE | 2019-11-29 19:20 | NUR ---
ASSUMED CARE. HALLEY IS COMFORT CARE. HE IS SOFT SPOKEN, FATIQUED, AND APPEARS VERY TIRED. DENIES PAIN OR DISCOMFORT. DENIES SOB OR CHEST PAIN. REPORTS VERY COLD, HEATER UP IN ROOM, SEVERAL BLANKETS GIVEN. ATE SMALL AMOUNT OF SNACKS EARLIER BEFORE SHIFT CHANGE. IV'S PATENT. CALL LIGHT IN REACH, DENIES ANY NEEDS AT THIS TIME.
--- NOTE | 2019-11-29 22:49 | NUR ---
HALLEY IS SLEEPING COMFORTABLY, IS ABLE TO TURN AND MOVE IN BED INDEPENDENTLY. BED ALARM IS ON DUE TO PATIENT TRYING TO GET OUT OF BED EARLIER WITH OUT CALLING. AUXILIARY EQUIPMENT OPERATOR STATED HE TRIED TO GET UP TO USE THE BATHROOM BUT THEN DECIDED HE DID NOT NEED TO AND LAID BACK DOWN. ALSO CALLED TO CHECK ON HIM VERY CONCERNED. STATES SHE IS NOT READY TO HAVE HIM GO, AND WILL LIKE A CALL IF ANYTHING HAPPENS. WILL CONTINUE TO MONITOR.
--- NOTE | 2019-11-30 05:14 | NUR ---
SHIFT SUMMARY: HALLEY HAS DONE WELL TONIGHT, WITH NO ACUTE CHANGES OR CONCERNS. HE SLEPT MOST OF THE SHIFT, NO PAIN OR DISCOMFORT. HE WAS ABLE TO GET UP WITH 1 ASSIST TO THE BEDSIDE COMMODE AND BACK TO BED. HIS BIGGEST COMPLAINT WAS THAT HE WAS COLD. HE DENIED ANY PROBLEMS EACH TIME WE WOULD DO OUR ROUNDING. REMAINED COOPERATIVE AND PLEASANT. CALL LIGHT IN REACH, BED ALARM ON.
--- NOTE | 2019-11-30 09:19 | NUR ---
Comfort Care Visit Pt resting in bed and reports mild but manageable pain in his hip. Pt denies dyspnea and anxiety. Discussed plan for hospice with Pt still in agreement. Spoke with Bedside RN Sera and discussed case. Sera will call Palliative Care when spouse arrives to complete a POLST. Palliatve Care will F/U when family arrives.
--- NOTE | 2019-11-30 13:35 | NUR ---
Received call from Bedside MUKUND Zamora reporting spouse has arrived and is requesting a visit. Pt resting in bed upon arrrival. No S/S of distress at this time. Pt's spouse Cristal at bedside. Cristal reports having a conversation with her daughter and would like Pt to receive limited treatment and no longer wants comfort care or hospice. Cristal reports she would like diagnostic testing performed to help determine the cause of heart issues that took place yesterday. Confirmed with Pt of wishes and Pt is requesting for further testing. Cristal reports she had difficulty processing information given in the ED and last night she reflected on goals of care. Cristal states she and Pt are not ready for end of life care. Pt and spouse report wishes to remain a DNR. Called and spoke with Dr Mckinley. Discussed case and relayed Pt's wishes. Palliative Care will remain available.
--- NOTE | 2019-11-30 17:39 | NUR ---
SHIFT SUMMARY PT ON COMFORT CARE THOUGH THROUGH THE SHIFT, PT'S FAMILY EXPRESSED CONCERN ABOUT PT'S CARE. SEE NOTE FROM GEOVANY FALCON. ECHO COMPLETED, AWAITING VOID, TO SEND UA TO LAB. BLOOD CULTURES DRAWN. PT RESTING IN BED THIS SHIFT. AXO X4, PLEASANT AND COOPERATIVE WITH CARE. DENIES PAIN, SOB AND NV. PT HAD YELLOW LIQUID STOOL X1 THIS SHIFT. BED IN LOW POSITION, CALL LIGHT WITHIN REACH.
--- NOTE | 2019-11-30 22:20 | NUR ---
PT RESTING COMFORTABLY IN BED; CHEERFUL; ALERT AND ORIENTED X 4.
--- NOTE | 2019-12-01 03:34 | NUR ---
SHIFT SUMMARY: 84 Y/O MALE RESTED COMFORTABLY IN BED ALL SHIFT; DENIES PAIN OR NAUSEA; TELEMETRY REFLECTS SINUS BRADYCARDIA/FIRST DEGREE BUNDLE BRANCH BLOCK AND PVCs PER RIOS--CHEMICAL COMPOUNDER; ALERT AND ORIENTED X 4; PT IS DNR BUT NO LONGER COMFORT CARE PER PT AND FAMILY REQUEST ON 11/30/19; BED ALARM APPLIED FOR SAFETY PURPOSES, BED LOW POSITION WITH CALL LIGHT AT SIDE.
[2019-12-01 04:53] LABS: BASOPHILS ABSOLUTE AUTO 0.09 K/mm3 (0.00-0.23); BASOPHILS PERCENT AUTO 1 % (0-2); EOSINOPHILS ABSOLUTE AUTO 0.48 K/mm3 (0.00-0.68); EOSINOPHILS PERCENT AUTO 4 % (0-6); Hematocrit 38.8 % (37.0-53.0); Hemoglobin 11.8 g/dL (13.5-17.5); IMMATURE GRAN ABSOLUTE AUTO 0.13 K/mm3 (0.00-0.10); IMMATURE GRAN PERCENT AUTO 1 % (0-1); LYMPHOCYTES ABSOLUTE AUTO 1.89 K/mm3 (0.84-5.20); LYMPHOCYTES PERCENT AUTO 16 % (21-46); MONOCYTES ABSOLUTE AUTO 1.41 K/mm3 (0.16-1.47); MONOCYTES PERCENT AUTO 12 % (4-13); Mean Corpuscular HGB 26.2 pg (26.0-34.0); Mean Corpuscular HGB Conc 30.4 g/dL (31.5-36.5); Mean Corpuscular Volume 86 fL (80-100); Mean Platelet Volume 10.7 fL (9.1-12.4); NEUTROPHILS ABSOLUTE AUTO 7.62 K/mm3 (1.96-9.15); NEUTROPHILS PERCENT AUTO 66 % (41-73); Platelet Count 343 K/mm3 (150-400); RDW Coefficient Variation 21.1 % (11.7-14.2); RDW Standard Deviation 65.2 fL (35.1-46.3); White Blood Cell Count 11.62 K/mm3 (4.00-11.30)
[2019-12-01 05:11] LABS: Bun/Creatinine Ratio 18.7 (12.0-20.0); Calcium, Blood 9.2 mg/dL (8.5-10.1); Creatinine, Blood 2.3 mg/dL (0.60-1.20); Magnesium, Blood 2.1 mg/dL (1.6-2.4); Potassium, Blood 4.1 mmol/L (3.5-5.5)
[2019-12-01 14:45] LABS: Source, Urine Clean Catch
[2019-12-01 14:49] LABS: Bilirubin, Urine Neg (Neg); Blood, Urine Neg (Neg); Glucose Qualitative, Urine Neg (Neg); Ketones, Urine Neg (Neg); Leukocyte Esterase, Urine 3+ (Neg); Nitrite, Urine Neg (Neg); Protein, Urine 1+ (Neg); Urobilinogen, Urine NORM (Normal)
[2019-12-01 15:07] LABS: Appearance, Urine Clear (Clear); Color, Urine Yellow (P-Yellow)
[2019-12-01 15:08] LABS: White Blood Cells, Urine 25-50 /hpf (0-5)
[2019-12-01 15:09] LABS: Bacteria Few /hpf; Red Blood Cells, Urine 0-2 /hpf (0-2); Squamous Epithelial Cells Few /hpf (Few); Transitional Epithelial Cells Few /hpf (0-Rare)
[2019-12-01 15:31] LABS: International Normalized Ratio 1.07; Prothrombin Time Results 11.4 Sec (9.7-11.5)
--- NOTE | 2019-12-01 16:52 | NUR ---
PT A/O X3; PLEASANT AND COOPERATIVE. WORKED W/ P.T.; O.T.; AND S.T. TODAY. ON SWALLOW PRECAUTIONS. TAKES MEDS WHOLE IN APPLE SAUCE. ONE ASSIST WITH FWW AND GB. TELEMETRY READING SINUS MADHAVI WITH FIRST DEGREE BBB. PT TO POSSIBLY HAVE A PACEMAKER PLACED ON WEDNESDAY. PT STARTED ON HEPARIN TODAY. VSS; WILL CONTINUE TO MONITOR.
--- NOTE | 2019-12-01 19:27 | NUR ---
84 Y/O MALE RESTING COMFORTABLY IN BED; CHEERFUL; ALERT AND ORIENTED X 4; DENIES PAIN OR NAUSEA.
[2019-12-02 00:40] LABS: BASOPHILS ABSOLUTE AUTO 0.08 K/mm3 (0.00-0.23); BASOPHILS PERCENT AUTO 1 % (0-2); EOSINOPHILS PERCENT AUTO 5 % (0-6); Hematocrit 37.3 % (37.0-53.0); Hemoglobin 11.5 g/dL (13.5-17.5); IMMATURE GRAN ABSOLUTE AUTO 0.08 K/mm3 (0.00-0.10); IMMATURE GRAN PERCENT AUTO 1 % (0-1); LYMPHOCYTES ABSOLUTE AUTO 1.83 K/mm3 (0.84-5.20); LYMPHOCYTES PERCENT AUTO 19 % (21-46); MONOCYTES ABSOLUTE AUTO 1.37 K/mm3 (0.16-1.47); MONOCYTES PERCENT AUTO 14 % (4-13); Mean Corpuscular HGB 26.3 pg (26.0-34.0); Mean Corpuscular HGB Conc 30.8 g/dL (31.5-36.5); Mean Corpuscular Volume 85 fL (80-100); NEUTROPHILS ABSOLUTE AUTO 5.92 K/mm3 (1.96-9.15); NEUTROPHILS PERCENT AUTO 61 % (41-73); Platelet Count 345 K/mm3 (150-400); RDW Coefficient Variation 20.6 % (11.7-14.2); Red Blood Cell Count 4.37 M/mm3 (4.30-5.90); White Blood Cell Count 9.78 K/mm3 (4.00-11.30)
[2019-12-02 00:56] LABS: Albumin, Blood 2.9 g/dL (3.4-5.0); Anion Gap 4 mmol/L (6-16); Blood Urea Nitrogen 37 mg/dL (8-24); Bun/Creatinine Ratio 17.5 (12.0-20.0); CO2, Blood 26 mmol/L (21-32); Chloride, Blood 110 mmol/L (98-108); Creatinine, Blood 2.11 mg/dL (0.60-1.20); Glomerular Filtration Rate 32 (60-); Glucose, Blood 79 mg/dL (70-99); Magnesium, Blood 1.9 mg/dL (1.6-2.4); Phosphorus, Blood 2.5 mg/dL (2.5-4.9); Potassium, Blood 3.9 mmol/L (3.5-5.5); Sodium, Blood 140 mmol/L (136-145)
--- NOTE | 2019-12-02 04:21 | NUR ---
SHIFT SUMMARY: 84 Y/O MALE RESTED COMFORTABLY ALL SHIFT; DENIES PAIN OR NAUSEA; TELEMETRY REFLECTS SINUS BRADYCARDIA WITH BUNDLE BRANCH BLOCK PER TALA--POULTRY FARMER; HEPARIN INFUSING WITHOUT ISSUE; ALERT AND ORIENTED X 3, ABLE TO FOLLOW SIMPLE VERBAL COMMANDS; PT PENDING POSSIBLE PACEMAKER INSERTION ON WEDNESDAY, DEC 03; BED ALARM APPLIED FOR SAFETY, BED LOW POSITION WITH CALL LIGHT AT SIDE.
--- NOTE | 2019-12-02 15:52 | NUR ---
PT RESTING QUIETLY AT START OF SHIFT. HEPARIN DRIP INFUSING PER EMAR. PT WOKE EASILY FOR CARE. NO C/O. CALLED FOR ASSIST TO BTHRM TO VOID. PT SBA BACK TO BED. DR QUEVEDO IN TO SEE PT. LATER CARDIOLOGY IN TO SEE PT. NO PACER NEEDED, PER CARDIOLOGY. METOPROLOL TO BE D/C'D. P/T HERE TO SEE PT; PT ABLE TO AMBULATE IN RM AND CLIMB STAIRS WELL. DR QUEVEDO THEN BACK IN TO SEE PT. D/C ORDERS PLACED. IV HEPARIN STOPPED, TELE AND IV D/C'D. PT ABLE TO DRESS HIMSELF. D/C ORDERS AND MEDS DISCUSSED WITH PT AND AGAIN WITH WHEN SHE GOT HERE. PT'S CALLED TO BRING HIM A SHIRT AND PICK HIM UP. PT ASSISTED OUT TO CAR VIA W/C BY MIRANDA DUVAL.
== END 2019-12-02 14:29 | disposition home or self-care (01) | DRG 308 ==
LOC: ER 10:42 → MEDS 10:43
PROVIDERS: Emergency Medicine; Internal Medicine; ADMIT Internal Medicine
DX: R00.1 Bradycardia, unspecified (principal); I46.2 Cardiac arrest due to underlying cardiac condition; N17.9 Acute kidney failure, unspecified; C90.00 Multiple myeloma not having achieved remission; T44.7X5A Adverse effect of beta-adrenoreceptor antagonists, initial encounter; I44.0 Atrioventricular block, first degree; R13.10 Dysphagia, unspecified; G30.9 Alzheimer's disease, unspecified; F02.80 Dementia in other diseases classified elsewhere, unspecified severity, without behavioral disturbance, psychotic disturbance, mood disturbance, and anxiety; I12.9 Hypertensive chronic kidney disease with stage 1 through stage 4 chronic kidney disease, or unspecified chronic kidney disease; N18.32 Chronic kidney disease, stage 3b; M10.9 Gout, unspecified; L40.9 Psoriasis, unspecified; G62.9 Polyneuropathy, unspecified; D45 Polycythemia vera; Z51.5 Encounter for palliative care; Z66 Do not resuscitate; Z79.899 Other long term (current) drug therapy; Z79.01 Long term (current) use of anticoagulants; Z87.891 Personal history of nicotine dependence; Z86.718 Personal history of other venous thrombosis and embolism
CPT/HCPCS: 36415; 71045; 71046; 80047; 80048; 80053; 80069; 81001; 83605; 83735; 83880; 84145; 84443; 84484; 85014; 85025; 85610; 85730; 87040; 87086; 92610; 93005; 93010; 93306; 97110; 97161; 97165; 97530; 97535; 99285-25; A9270-GY; G0378; J1644; J7120

== ENCOUNTER 2020-04-11 09:34 | Emergency (ER) | payer MEDICARE ==
[~2020-04-11] VITALS: Ht 175.3 cm; Wt 97.5 kg
[~2020-04-11 09:34] MED LIST changes: +DONE10 PO; +FOLI1 PO; +LOSA25 PO; +METO50ER PO; +METTREX2.5 PO; +MIRT15 PO; +MULTI-VITAMIN1 EAC2 PO
[2020-04-11 10:30] LABS: BASOPHILS ABSOLUTE AUTO 0.13 K/mm3 (0.00-0.23); BASOPHILS PERCENT AUTO 1 % (0-2); EOSINOPHILS ABSOLUTE AUTO 0.81 K/mm3 (0.00-0.68); EOSINOPHILS PERCENT AUTO 7 % (0-6); Hematocrit 44.5 % (37.0-53.0); Hemoglobin 13.5 g/dL (13.5-17.5); IMMATURE GRAN ABSOLUTE AUTO 0.08 K/mm3 (0.00-0.10); IMMATURE GRAN PERCENT AUTO 1 % (0-1); LYMPHOCYTES ABSOLUTE AUTO 3.05 K/mm3 (0.84-5.20); LYMPHOCYTES PERCENT AUTO 27 % (21-46); MONOCYTES ABSOLUTE AUTO 1.09 K/mm3 (0.16-1.47); MONOCYTES PERCENT AUTO 10 % (4-13); Mean Corpuscular HGB 24.5 pg (26.0-34.0); Mean Corpuscular HGB Conc 30.3 g/dL (31.5-36.5); Mean Corpuscular Volume 81 fL (80-100); NEUTROPHILS ABSOLUTE AUTO 6.33 K/mm3 (1.96-9.15); NEUTROPHILS PERCENT AUTO 55 % (41-73); Platelet Count 321 K/mm3 (150-400); RDW Coefficient Variation 21.6 % (11.7-14.2); RDW Standard Deviation 62.2 fL (35.1-46.3); Red Blood Cell Count 5.51 M/mm3 (4.30-5.90); White Blood Cell Count 11.49 K/mm3 (4.00-11.30)
[2020-04-11 10:42] LABS: Alanine Aminotransfer (ALT/SGP 33 U/L (12-78); Albumin, Blood 3.2 g/dL (3.4-5.0); Albumin/Globulin Ratio 0.8 (0.8-1.8); Alk Phos 91 U/L (50-136); Anion Gap 7 mmol/L (6-16); Aspartate Aminotrans (AST/SGOT 40 U/L (12-37); Bilirubin, Total 0.7 mg/dL (0.1-1.0); Blood Urea Nitrogen 37 mg/dL (8-24); Bun/Creatinine Ratio 19.4 (12.0-20.0); CO2, Blood 25 mmol/L (21-32); Calcium, Blood 9.4 mg/dL (8.5-10.1); Chloride, Blood 109 mmol/L (98-108); Creatinine, Blood 1.91 mg/dL (0.60-1.20); Globulin, Blood 3.9 g/dL (2.2-4.0); Glomerular Filtration Rate 36 (60-); Glucose, Blood 98 mg/dL (70-99); Potassium, Blood 4.9 mmol/L (3.5-5.5); Sodium, Blood 141 mmol/L (136-145); Total Protein, Blood 7.1 g/dL (6.4-8.2)
[2020-04-11 10:43] LABS: Troponin I <0.015 ng/mL (0.000-0.040)
== END 2020-04-11 12:15 | disposition home or self-care (01) ==
LOC: ER 09:34
PROVIDERS: Emergency Medicine
DX: R55 Syncope and collapse (principal); I10 Essential (primary) hypertension; Z79.01 Long term (current) use of anticoagulants; Z79.899 Other long term (current) drug therapy; Z87.891 Personal history of nicotine dependence
CPT/HCPCS: 36415; 71045; 80053; 84484; 85025; 93005; 93010; 99284-25

== ENCOUNTER 2020-09-18 23:28 | Observation (INO) | payer OTHER, MEDICARE ==
[~2020-09-18] VITALS: Ht 177.8 cm; Wt 94.9 kg
[2020-09-18 23:54] LABS: BASOPHILS ABSOLUTE AUTO 0.14 K/mm3 (0.00-0.23); BASOPHILS PERCENT AUTO 1 % (0-2); EOSINOPHILS ABSOLUTE AUTO 1.16 K/mm3 (0.00-0.68); EOSINOPHILS PERCENT AUTO 7 % (0-6); Hematocrit 45.8 % (37.0-53.0); Hemoglobin 14.1 g/dL (13.5-17.5); IMMATURE GRAN ABSOLUTE AUTO 0.13 K/mm3 (0.00-0.10); IMMATURE GRAN PERCENT AUTO 1 % (0-1); LYMPHOCYTES ABSOLUTE AUTO 5.34 K/mm3 (0.84-5.20); LYMPHOCYTES PERCENT AUTO 31 % (21-46); MONOCYTES ABSOLUTE AUTO 1.82 K/mm3 (0.16-1.47); MONOCYTES PERCENT AUTO 10 % (4-13); Mean Corpuscular HGB 24.3 pg (26.0-34.0); Mean Corpuscular HGB Conc 30.8 g/dL (31.5-36.5); Mean Corpuscular Volume 79 fL (80-100); Mean Platelet Volume 11.4 fL (9.1-12.4); NEUTROPHILS ABSOLUTE AUTO 8.89 K/mm3 (1.96-9.15); NEUTROPHILS PERCENT AUTO 51 % (41-73); Platelet Count 346 K/mm3 (150-400); RDW Coefficient Variation 21.6 % (11.7-14.2); RDW Standard Deviation 59.7 fL (35.1-46.3); Red Blood Cell Count 5.81 M/mm3 (4.30-5.90); White Blood Cell Count 17.48 K/mm3 (4.00-11.30)
[2020-09-19 00:05] LABS: Calcium, Ionized (POC) 1.32 mmol/L (1.10-1.46); Chloride (POC) 106 mmol/L (98-108); Glucose (ISTAT POC) 138 mg/dL (70-99); Hemoglobin (POC) 16.3 g/dL (13.5-17.5); Sodium (POC) 140 mmol/L (135-148); Total CO2 (POC) 24 mmol/L (21-32)
[2020-09-19 00:14] LABS: Alanine Aminotransfer (ALT/SGP 33 U/L (12-78); Albumin, Blood 3.3 g/dL (3.4-5.0); Albumin/Globulin Ratio 0.8 (0.8-1.8); Alk Phos 100 U/L (50-136); Anion Gap 5 mmol/L (6-16); Aspartate Aminotrans (AST/SGOT 23 U/L (12-37); Bilirubin, Total 0.3 mg/dL (0.1-1.0); Blood Urea Nitrogen 36 mg/dL (8-24); Bun/Creatinine Ratio 19.1 (12.0-20.0); CO2, Blood 23 mmol/L (21-32); Calcium, Blood 9.2 mg/dL (8.5-10.1); Chloride, Blood 111 mmol/L (98-108); Creatinine, Blood 1.88 mg/dL (0.60-1.20); Glomerular Filtration Rate 34 (60-); Glucose, Blood 132 mg/dL (70-99); Potassium, Blood 4.1 mmol/L (3.5-5.5); Sodium, Blood 139 mmol/L (136-145); Total Protein, Blood 7.3 g/dL (6.4-8.2); Troponin I <0.015 ng/mL (0.000-0.040)
[2020-09-19 01:00] LABS: SARS-Cov-2 (COVID-19) PCR, MMC NEGATIVE (NEGATIVE)
--- NOTE | 2020-09-19 05:40 | NUR ---
ASSUMED CARE OF PATIENT AT APPROXIMATELY 0325 FROM ED MUKUND Villarreal PATIENT ARRIVED VIA STRETCHER; TRANSFER VIA SLIDE SHEET FROM ED TO PCU STRETCHER; ZOLL IN PLACE. ACCOMPANIED PATIENT BUT WAS ONLY TO STAY FOR A LITTLE WHILE AND NOT ABLE TO ASSIST WITH ADMIT. SR W/ 1ST DEGREE AND BBB ON TELE; OXYGEN SATURATION ABOVE 90% ON 3LPM VIA NC. PIV INFUSING IVF PER ORDER. PATIENT RESPONDS TO VERBAL STIMULUS; ABLE TO STATE NAME, AND LOCATION BUT STATES YEAR 2002 AND PRESIDENT [place]. INCONTINENT OF URINE; SMALL PRESSURE ULCER ON LEFT BUTTOCK; PHOTO TAKEN AND PLACED IN CHART.
--- NOTE | 2020-09-19 12:44 | NUR ---
pt resting able to answer some questions. placed on palliative care. made sure he was warm. he wanted to tv on. TUBE SIZER AND CUTTER OPERATOR in to offer ice chips and oral care. Called for supportive visit. She is going to rest and then come in. Her daughter and family are supportive of choice. She will need help advised to see how he does tonight and come up with a plan. lower judicous dosing on narcotics due to his age and frailty. Review with nursing if he has nonverbal s/s of pain try po or rectal tylenol first and work up. If chest pain give morphine to hopefully avoid air hunger. kps score 20%.
--- NOTE | 2020-09-19 19:50 | NUR ---
PT AOX2 AND PLEASANT, PT DISCONTINUED HIS IVS AT 1048, DR. PRO AT BEDSIDE AND ASSESSED PT, RN SERVED WITNESS CALLED PT'S TO DISCUSS GOALS OF CARE, CODE STATUS CHANGED TO DNR AT 1030, PALLIATIVE NURSE INPUT ORDERS AT 1158, PT'S FAMILY AT BEDSIDE, PT CHANGED TO MED NO TELE, PT WAS CONTINENT OF BOWEL ASSIST X1 TO BSC WITH GAIT BELT, VSS, PT DENIES ADDITIONAL CONCERNS AT THIS TIME
--- NOTE | 2020-09-19 20:30 | NUR ---
ASSUMED CARE OF PATIENT AT APPROXIMATELY 1905 FROM GIULIA Wilde RN. PATIENT 1-2 ASSIST TO BATHROOM; INCONTINENT AT TIMES. PATIENT DENIES PAIN, NUMBNESS, TINGLING, DIZZINESS OR NAUSEA; REQUESTED ICE WATER. OXYGEN SATURATION ABOVE 90% ON 3LPM VIA NC. NO IV ACCESS; COMFORT CARE STATUS. ALERT AND ORIENTED TO SELF AND ; DOESNT USE CALL LIGHT; BED ALARM ON.
--- NOTE | 2020-09-20 06:28 | NUR ---
NO ACUTE CHANGES.
--- NOTE | 2020-09-20 10:47 | NUR ---
PT COMFORTABLY RESTING IN BED WITH HIS CALL LIGHT IN REACH.
--- NOTE | 2020-09-20 18:32 | NUR ---
SHIFT SUMMARY PT MUCH MORE ALERT BUT STILL QUITE CONFUSED AND LESS IMPULSIVE. ACCORDING TO THE PHYSICIAN THE PT'S MENTATION HAS GREATLY IMPROVED SINCE YX. DUE TO HIS IMPROVED MENTATION AND POSSIBILITY FOR GREATER RECOVERY, THE PT IS NO LONGER COMFORT CARE STATUS. THE PT IS TO BE TRANSFERRED TO THE MEDICAL FLOOR ONCE A ROOM IS AVAILABLE AND A PACEMAKER IS BEING RECONSIDERED. VSS. PT RESTING COMFORTABLY IN BED WITH HIS CALL LIGHT IN REACH.
--- NOTE | 2020-09-20 23:35 | NUR ---
XFER TO 333 PT REPORT GIVEN TO DANE DUVAL ON MEDICAL FLOOR, PT TAKEN TO NEW ROOM VIA HIS BED BY THIS RN AND PCT ASSISTANCE, CARE HANDED OFF TO NEW RN IN NEW ROOM, PT STABLE AT TIME OF TRANSFER OF CARE.
--- NOTE | 2020-09-21 04:27 | NUR ---
SHIFT SUMMARY PCU XFER THIS SHIFT (2329), REPORT REC FROM MUKUND SILVA; NO ACUTE CHANGES SINCE ASSUMING CARE, PT IS A&O X2-3 W/SHORT TERM MEM LOSS, UP W/1 ASSIST TO BSC, DENIES PAIN/DISCOMFORT, SLEEPING AT THIS TIME, CALL LIGHT IN REACH, WILL CONT TO MONITOR UNTIL REPORT GIVEN TO DAY RN.
[2020-09-21 05:44] LABS: BASOPHILS ABSOLUTE AUTO 0.07 K/mm3 (0.00-0.23); BASOPHILS PERCENT AUTO 0 % (0-2); EOSINOPHILS ABSOLUTE AUTO 0.06 K/mm3 (0.00-0.68); EOSINOPHILS PERCENT AUTO 0 % (0-6); Hematocrit 45.2 % (37.0-53.0); Hemoglobin 14.1 g/dL (13.5-17.5); IMMATURE GRAN ABSOLUTE AUTO 0.23 K/mm3 (0.00-0.10); IMMATURE GRAN PERCENT AUTO 1 % (0-1); LYMPHOCYTES ABSOLUTE AUTO 1.59 K/mm3 (0.84-5.20); LYMPHOCYTES PERCENT AUTO 8 % (21-46); MONOCYTES ABSOLUTE AUTO 1.26 K/mm3 (0.16-1.47); MONOCYTES PERCENT AUTO 7 % (4-13); Mean Corpuscular HGB 24.1 pg (26.0-34.0); Mean Corpuscular HGB Conc 31.2 g/dL (31.5-36.5); Mean Corpuscular Volume 77 fL (80-100); NEUTROPHILS ABSOLUTE AUTO 15.96 K/mm3 (1.96-9.15); NEUTROPHILS PERCENT AUTO 83 % (41-73); Platelet Count 285 K/mm3 (150-400); RDW Coefficient Variation 21.7 % (11.7-14.2); RDW Standard Deviation 57.6 fL (35.1-46.3); Red Blood Cell Count 5.84 M/mm3 (4.30-5.90); White Blood Cell Count 19.17 K/mm3 (4.00-11.30)
[2020-09-21 06:14] LABS: Thyroid Stimulating Hormone 0.941 uIU/mL (0.360-4.800)
[2020-09-21 06:27] LABS: Bun/Creatinine Ratio 20.9 (12.0-20.0); Calcium, Blood 8.7 mg/dL (8.5-10.1); Creatinine, Blood 1.77 mg/dL (0.60-1.20); Potassium, Blood 7.1 mmol/L (3.5-5.5)
--- NOTE | 2020-09-22 03:59 | NUR ---
SHIFT SUMMARY PATIENT HAD NO ACUTE CHANGES OBSERVED. AXOX 3 WITH HX DEMENTIA. ONE ASSIST W/FWW TO BSC. PIV REMAINS INTACT. ON ROOM AIR. DENIES PAIN, SOB, AND N/V. HYPERTENSIVE. AFEBRILE. USES URINAL AT BEDSIDE. CALL LIGHT IN REACH. BED IN LOWEST POSITION. WILL CONTINUE TO MONITOR UNTIL DAY SHIFT NURSE ASSUMES CARE.
--- NOTE | 2020-09-22 10:29 | NUR ---
1905 09/21/20 LATE ENTRY SHIFT SUMMARY; ORIGINALLY PLACED IN WRONG CHART. NO ACUTE CHANGES TO PRESENT THIS SHIFT. NO C/O THRU OUT THE DAY. PT WITH ADVANCED DEMENTIA, PLEASANT AND CO-OP, SL, TELE D/C'D, PT ON BASELINE RA. DR PRO HERE TO SEE PT TODAY. CALLED PT'S DAUGHTER AFTER TALKING WITH PT. ABLE TO USE URINAL AT BS WITH ASSIST. DENIED FURTHER NEEDS. CALL LT IN REACH.
--- NOTE | 2020-09-22 17:06 | NUR ---
SHIFT SUMMARY NO ACUTE CHANGES TO PRESENT THIS SHIFT. PT RESTING QUIETLY AT START OF SHIFT. WOKE EASILY FOR SHIFT REPORT. DENIED NEEDS. PT WOKE AND POSITIONED FOR BREAKFAST. PT DECLINED NEEDING TO GO TO BTHRM BEFORE EATING. 2 MINUTES LATER, PT OUT OF BED, SETTING BED ALARM OFF TRYING TO GET TO BTHRM. PT UNSTEADY WITH TREMORS. ASSISTED PT TO BSC FOR BM AND VOIDING. 1P SBA BACK TO BED. NO C/O. CALL LT IN REACH. BED ALARM ON FOR SAFETY. POSSIBLE D/C HOME TOMORROW.
--- NOTE | 2020-09-23 03:37 | NUR ---
SHIFT SUMMARY PATIENT HAD NO ACUTE CHANGES OBSERVED. AXOX 3 WITH HX OF DEMENTIA. ACTIVATED BED ALARM X ONE, IMPULSIVE TO GO TO BSC. ONE ASSIST TO BSC W/FWW. PIV REMAINS INTACT. DENIES PAIN, SOB, AND N/V. BOWEL CARE MEDICATION HELD WITH LOOSE STOOL DAY SHIFT AND X ONE NOC. VSS/AFEBRILE. CALL LIGHT IN REACH. BED IN LOWEST POSITION AND ALARM ACTIVATED. WILL CONTINUE TO MONITOR UNTIL DAY SHIFT NURSE ASSUMES CARE.
[2020-09-23] MEDS ORDERED: Acetaminophen325 M1 PO (14:17)
[2020-09-23] MEDS ORDERED: AUGMENTIN250 MG/5 M PO (14:18)
[2020-09-23] MEDS ORDERED: VISBIOME 112.51 EACH PO (14:19)
== END 2020-09-23 15:27 | disposition home health service (06) ==
LOC: ER 23:28 → PCU 23:29 → MEDS 23:29 → PCU 23:29 → ER 09-19 03:18 → PCU 09-19 03:20 → MEDS 09-20 23:23
PROVIDERS: Internal Medicine; Student in an Organized Health Care Education/Training Program; ADMIT Family Medicine
DX: I45.3 Trifascicular block (principal); I46.9 Cardiac arrest, cause unspecified; R00.1 Bradycardia, unspecified; G92 Toxic encephalopathy; G30.9 Alzheimer's disease, unspecified; F02.80 Dementia in other diseases classified elsewhere, unspecified severity, without behavioral disturbance, psychotic disturbance, mood disturbance, and anxiety; I12.9 Hypertensive chronic kidney disease with stage 1 through stage 4 chronic kidney disease, or unspecified chronic kidney disease; N18.30 Chronic kidney disease, stage 3 unspecified; M35.3 Polymyalgia rheumatica; Z79.01 Long term (current) use of anticoagulants; Z87.891 Personal history of nicotine dependence; Z85.79 Personal history of other malignant neoplasms of lymphoid, hematopoietic and related tissues; Z20.822 Contact with and (suspected) exposure to COVID-19
CPT/HCPCS: 36415; 70450; 71045; 80047; 80048; 80053; 83605; 83690; 84132; 84145; 84443; 84484; 85014; 85025; 93005; 93010; 94762; 96374; 99285-25; A9270; G0378; J0295; J0456; J0461; J0690; J1580; J1644; J7040; J7050; J7120; U0004

== ENCOUNTER 2020-11-14 14:02 | Emergency (ER) | payer MEDICARE, OTHER ==
[~2020-11-14] VITALS: Ht 177.8 cm; Wt 90.7 kg
[~2020-11-14 14:02] MED LIST changes: +AUGMENTIN250 MG/5 M PO; +Acetaminophen325 M1 PO; +VISBIOME 112.51 EACH PO
[2020-11-14 15:02] LABS: Hematocrit 48.5 % (37.0-53.0); Mean Corpuscular HGB 25.4 pg (26.0-34.0); Mean Corpuscular HGB Conc 30.9 g/dL (31.5-36.5); Mean Corpuscular Volume 82 fL (80-100); Mean Platelet Volume 11.1 fL (9.1-12.4); Platelet Count 434 K/mm3 (150-400); RDW Coefficient Variation 24.8 % (11.7-14.2); RDW Standard Deviation 71.6 fL (35.1-46.3); Red Blood Cell Count 5.91 M/mm3 (4.30-5.90); White Blood Cell Count 15.95 K/mm3 (4.00-11.30)
[2020-11-14 15:21] LABS: Alanine Aminotransfer (ALT/SGP 27 U/L (12-78); Albumin, Blood 3.2 g/dL (3.4-5.0); Albumin/Globulin Ratio 0.8 (0.8-1.8); Alk Phos 81 U/L (50-136); Anion Gap 4 mmol/L (6-16); Aspartate Aminotrans (AST/SGOT 30 U/L (12-37); Bilirubin, Total 0.4 mg/dL (0.1-1.0); Blood Urea Nitrogen 38 mg/dL (8-24); Bun/Creatinine Ratio 22.5 (12.0-20.0); CO2, Blood 25 mmol/L (21-32); Calcium, Blood 9.6 mg/dL (8.5-10.1); Chloride, Blood 112 mmol/L (98-108); Creatinine, Blood 1.69 mg/dL (0.60-1.20); Globulin, Blood 4.2 g/dL (2.2-4.0); Glomerular Filtration Rate 39 (60-); Glucose, Blood 92 mg/dL (70-99); Potassium, Blood 4.3 mmol/L (3.5-5.5); Sodium, Blood 141 mmol/L (136-145); Total Protein, Blood 7.4 g/dL (6.4-8.2); Troponin I <0.015 ng/mL (0.000-0.040)
[2020-11-14 16:15] LABS: Source, Urine Clean Catch
[2020-11-14 16:34] LABS: Appearance, Urine Clear (Clear); Bilirubin, Urine Neg (Neg); Blood, Urine Neg (Neg); Color, Urine Yellow (P-Yellow); Glucose Qualitative, Urine Neg (Neg); Ketones, Urine Neg (Neg); Leukocyte Esterase, Urine Neg (Neg); Nitrite, Urine Neg (Neg); Protein, Urine 3+ (Neg); Urobilinogen, Urine NORM (Normal)
[2020-11-14 18:06] LABS: BAND PERCENT MAN 5 % (0-8); BASOPHILS PERCENT MAN 0 % (0-2); EOSINOPHILS ABSOLUTE MAN 0.31 K/mm3 (0.00-0.68); EOSINOPHILS PERCENT MAN 2 % (0-6); LYMPHOCYTES % ATYPICAL MANUAL 1 % (0-0); LYMPHOCYTES ABSOLUTE MAN 1.91 K/mm3 (0.84-5.20); LYMPHOCYTES PERCENT MAN 11 % (21-46); MONOCYTES ABSOLUTE MAN 1.11 K/mm3 (0.16-1.47); MONOCYTES PERCENT MAN 7 % (4-13); SEG NEUTROPHILS PERCENT MAN 74 % (41-73); TOTAL CELLS COUNTED 100
[2020-11-14] MEDS ORDERED: AZIT250 PO (18:11)
[2020-11-14] MEDS ORDERED: AMOCLA875 PO (18:11)
[2020-11-14] MEDS ORDERED: NYAMYC15 G1 TOP (18:11)
[2020-11-14 18:20] LABS: Red Blood Cells, Urine 0-2 /hpf (0-2); White Blood Cells, Urine 0-2 /hpf (0-5)
[2020-11-14 18:21] LABS: Bacteria Few /hpf; Squamous Epithelial Cells Rare /hpf (Few)
== END 2020-11-14 18:39 | disposition home or self-care (01) ==
LOC: ER 14:02
PROVIDERS: Physician Assistant
DX: J18.9 Pneumonia, unspecified organism (principal); B35.6 Tinea cruris; R25.1 Tremor, unspecified; D72.829 Elevated white blood cell count, unspecified; R26.9 Unspecified abnormalities of gait and mobility; I12.9 Hypertensive chronic kidney disease with stage 1 through stage 4 chronic kidney disease, or unspecified chronic kidney disease; N18.9 Chronic kidney disease, unspecified; Z79.899 Other long term (current) drug therapy; Z79.01 Long term (current) use of anticoagulants
CPT/HCPCS: 36415; 51701; 71045; 80053; 81001; 84484; 85025; 93005; 93010; 99284-25; A9270

== ENCOUNTER 2022-01-10 11:17 | Emergency (ER) | payer MEDICARE ==
[~2022-01-10] VITALS: Ht 180.3 cm; Wt 77.1 kg
[~2022-01-10 11:17] MED LIST changes: +AMOCLA875 PO; +AZIT250 PO; +BUME1; +FURO80 PO; +KLOR-CON 1010 ME8 PO; +NYAMYC15 G1 TOP; +REMERON15 M9 PO
[2022-01-10 12:23] LABS: BASOPHILS ABSOLUTE AUTO 0.11 K/mm3 (0.00-0.23); BASOPHILS PERCENT AUTO 1 % (0-2); EOSINOPHILS ABSOLUTE AUTO 0.64 K/mm3 (0.00-0.68); EOSINOPHILS PERCENT AUTO 6 % (0-6); Hematocrit 39.6 % (37.0-53.0); IMMATURE GRAN PERCENT AUTO 1 % (0-1); LYMPHOCYTES ABSOLUTE AUTO 1.11 K/mm3 (0.84-5.20); LYMPHOCYTES PERCENT AUTO 10 % (21-46); MONOCYTES ABSOLUTE AUTO 0.81 K/mm3 (0.16-1.47); MONOCYTES PERCENT AUTO 7 % (4-13); Mean Corpuscular HGB 23.1 pg (26.0-34.0); Mean Corpuscular HGB Conc 30.3 g/dL (31.5-36.5); Mean Corpuscular Volume 76 fL (80-100); NEUTROPHILS ABSOLUTE AUTO 8.54 K/mm3 (1.96-9.15); NEUTROPHILS PERCENT AUTO 75 % (41-73); Platelet Count 273 K/mm3 (150-400); RDW Coefficient Variation 21.3 % (11.7-14.2); RDW Standard Deviation 57.5 fL (35.1-46.3); Red Blood Cell Count 5.19 M/mm3 (4.30-5.90); White Blood Cell Count 11.31 K/mm3 (4.00-11.30)
[2022-01-10 12:28] LABS: International Normalized Ratio 1.11; Prothrombin Time Results 11.6 Sec (9.7-11.5)
[2022-01-10 12:35] LABS: Albumin, Blood 2.8 g/dL (3.4-5.0); Albumin/Globulin Ratio 0.8 (0.8-1.8); Bilirubin, Total 0.3 mg/dL (0.1-1.0); Bun/Creatinine Ratio 20.2 (12.0-20.0); Calcium, Blood 8.4 mg/dL (8.5-10.1); Creatinine, Blood 2.13 mg/dL (0.60-1.20); Globulin, Blood 3.5 g/dL (2.2-4.0); Potassium, Blood 4.3 mmol/L (3.5-5.5); Total Protein, Blood 6.3 g/dL (6.4-8.2)
[2022-01-10 13:20] LABS: Source, Urine Voided
[2022-01-10 13:31] LABS: Appearance, Urine Clear (Clear); Bilirubin, Urine Neg (Neg); Blood, Urine Neg (Neg); Glucose Qualitative, Urine Neg (Neg); Ketones, Urine Neg (Neg); Leukocyte Esterase, Urine Neg (Neg); Nitrite, Urine Neg (Neg); Protein, Urine 1+ (Neg); Urobilinogen, Urine NORM (Normal)
[2022-01-10 13:39] LABS: Color, Urine Pale Yellow (P-Yellow)
== END 2022-01-10 15:48 | disposition home or self-care (01) ==
LOC: ER 11:17
PROVIDERS: Emergency Medicine
DX: S09.90XA Unspecified injury of head, initial encounter (principal); W18.30XA Fall on same level, unspecified, initial encounter; G30.9 Alzheimer's disease, unspecified; F02.80 Dementia in other diseases classified elsewhere, unspecified severity, without behavioral disturbance, psychotic disturbance, mood disturbance, and anxiety; I12.9 Hypertensive chronic kidney disease with stage 1 through stage 4 chronic kidney disease, or unspecified chronic kidney disease; N18.9 Chronic kidney disease, unspecified; Z79.899 Other long term (current) drug therapy; Z79.01 Long term (current) use of anticoagulants; Z87.891 Personal history of nicotine dependence; Z66 Do not resuscitate
CPT/HCPCS: 36415; 51702; 70450; 80053; 84484; 85025; 85610; 93005; 93010